=== PATIENT | male | born 1980 | race Caucasian/White ===

== ENCOUNTER 2020-10-12 11:17 | Emergency (ER) | payer OTHER ==
[~2020-10-12] VITALS: Ht 193 cm; Wt 113.4 kg
[2020-10-12] MEDS ORDERED: METF500C PO (12:11)
[2020-10-12] MEDS ORDERED: PREG200 PO (12:11)
[2020-10-12 12:26] LABS: Source, Urine Voided
[2020-10-12 12:33] LABS: Appearance, Urine Clear (Clear); Bilirubin, Urine Neg (Neg); Blood, Urine 1+ (Neg); Color, Urine Yellow (P-Yellow); Glucose Qualitative, Urine 4+ (Neg); Ketones, Urine 1+ (Neg); Leukocyte Esterase, Urine Neg (Neg); Nitrite, Urine Neg (Neg); Protein, Urine 1+ (Neg); Urobilinogen, Urine NORM (Normal)
[2020-10-12 12:38] LABS: Hematocrit 37.7 % (37.0-53.0); Hemoglobin 13.1 g/dL (13.5-17.5); Mean Corpuscular HGB 29.4 pg (26.0-34.0); Mean Corpuscular HGB Conc 34.7 g/dL (31.5-36.5); Mean Corpuscular Volume 85 fL (80-100); Mean Platelet Volume 10.4 fL (9.1-12.4); Platelet Count 130 K/mm3 (150-400); RDW Coefficient Variation 13.2 % (11.7-14.2); RDW Standard Deviation 41.1 fL (35.1-46.3); Red Blood Cell Count 4.45 M/mm3 (4.30-5.90); White Blood Cell Count 5.65 K/mm3 (4.00-11.30)
[2020-10-12 12:54] LABS: Bacteria Not Seen /hpf; Mucus Light (0-Heavy); Red Blood Cells, Urine 0-2 /hpf (0-2); Squamous Epithelial Cells Not Seen /hpf (Few); White Blood Cells, Urine 0-2 /hpf (0-5)
[2020-10-12 13:10] LABS: BAND PERCENT MAN 2 % (0-8); BASOPHILS ABSOLUTE MAN 0.11 K/mm3 (0.00-0.23); BASOPHILS PERCENT MAN 2 % (0-2); EOSINOPHILS PERCENT MAN 0 % (0-6); LYMPHOCYTES % ATYPICAL MANUAL 3 % (0-0); LYMPHOCYTES PERCENT MAN 36 % (21-46); MONOCYTES PERCENT MAN 9 % (4-13); MYELOCYTE ABSOLUTE MAN 0.05 K/mm3 (0.00-0.00); MYELOCYTE PERCENT MAN 1 % (0-0); NEUTROPHILS ABSOLUTE MAN 2.76 K/mm3 (1.96-9.15); SEG NEUTROPHILS PERCENT MAN 47 % (41-73); TOTAL CELLS COUNTED 100
[2020-10-12 13:16] LABS: Alanine Aminotransfer (ALT/SGP 98 U/L (12-78); Albumin, Blood 2.8 g/dL (3.4-5.0); Albumin/Globulin Ratio 0.8 (0.8-1.8); Alk Phos 103 U/L (50-136); Anion Gap 6 mmol/L (6-16); Aspartate Aminotrans (AST/SGOT 72 U/L (12-37); Bilirubin, Total 1.1 mg/dL (0.1-1.0); Blood Urea Nitrogen 7 mg/dL (8-24); CO2, Blood 25 mmol/L (21-32); Calcium, Blood 7.9 mg/dL (8.5-10.1); Chloride, Blood 101 mmol/L (98-108); Creatinine, Blood 0.63 mg/dL (0.60-1.20); Globulin, Blood 3.4 g/dL (2.2-4.0); Glomerular Filtration Rate >60 (60-); Glucose, Blood 333 mg/dL (70-99); Potassium, Blood 3.7 mmol/L (3.5-5.5); Sodium, Blood 132 mmol/L (136-145); Total Protein, Blood 6.2 g/dL (6.4-8.2)
[2020-10-12] MEDS ORDERED: Norco 7.5-3251 EACH PO (15:56)
[2020-10-12] MEDS ORDERED: ONDA4ODT MM (16:36)
== END 2020-10-12 16:45 | disposition home or self-care (01) ==
LOC: ER 11:17
PROVIDERS: Emergency Medicine
DX: D73.5 Infarction of spleen (principal); R16.1 Splenomegaly, not elsewhere classified; E11.40 Type 2 diabetes mellitus with diabetic neuropathy, unspecified
CPT/HCPCS: 74177; 80053; 81001; 85025; 93005; 93010; 96374-59; 96375; 96376; 99284-25; J1170; J2405; J3010; J7030; Q9967

== ENCOUNTER 2021-07-17 17:32 | Emergency (ER) | payer BC ==
[~2021-07-17] VITALS: Ht 193 cm; Wt 111.1 kg
[~2021-07-17 17:32] MED LIST: METF500C PO; Norco 7.5-3251 EACH PO; ONDA4ODT MM; PREG200 PO
[2021-07-17] MEDS ORDERED: Glucotrol Xl5 MG PO (17:59)
[2021-07-17] MEDS ORDERED: PREG300 PO (17:59)
[2021-07-17] MEDS ORDERED: METFORMIN HCL500 M3 PO (17:59)
== END 2021-07-17 18:15 | disposition home or self-care (01) ==
LOC: ER 17:32
DX: Z76.0 Encounter for issue of repeat prescription (principal); F17.200 Nicotine dependence, unspecified, uncomplicated; Z88.6 Allergy status to analgesic agent
CPT/HCPCS: 99281